=== PATIENT | female | born 1980 | race Hispanic/Latino ===

== ENCOUNTER 2018-07-14 13:55 | Emergency (ER) | payer OTHER ==
[~2018-07-14] VITALS: Ht 165.1 cm; Wt 108.9 kg
[~2018-07-14 13:55] MED LIST: AUGMENTIN 875-1 EACH PO; BACTRIM DS TAB1 EACH PO; BENTYL 10 MG CA10 MG PO; BENTYL10 M1 PO; BENTYL20 M1 PO; CLONAZEPAM0.5 M2 PO; CLONAZEPAM0.5 MG PO; CLONAZEPAM1 MG PO; COLACE100 MG PO; DICLOFENAC POTA50 M1 PO; DILAUDID2 M1 PO; DILAUDID2 MG PO; DONNATAL TABS1 TAB PO; DOXYCYCLINE100 MG PO; ESCITALOPRAM OX10 MG PO; ESCITALOPRAM10 MG PO; FLEXERIL10 MG PO; HYDROCODONE/ACE1 TA1 PO; IBUPROFEN600 M1 PO; IBUPROFEN800 M1 PO; IMODIUM A-D2 M2 PO; KETOROLAC TROME10 M1 PO; LAMICTAL 25MG25 MG PO; LAMICTAL150 MG PO; LAMOTRIGINE200 M2 PO; LATUDA120 M1 PO; LATUDA20 MG PO; LEVSIN-SL0.125 MG PO; LEXAPRO 20MG M20 MG PO; LEXAPRO20 M1 PO; LITHIUM CARBON300 M4 PO; LITHIUM CARBON600 M1 PO; MINASTRIN 24 FE1 KIT PO; MIRALAX17 GM PO; MIRENA1 EACH; MIRTAZAPINE15 M2 PO; MOBIC 15MG15 MG PO; OLANZAPINE10 M1 PO; OXYCODONE-ACET1 EACH PO; PERCOCET 325 MG1 TA2 PO; PERCOCET 5-3251 EACH PO; PHENERGAN25 M1 PO; PREVACID 30MG30 MG PO; PRILOSEC 20MG C20 MG PO; PYRIDIUM100 M1 PO; REGLAN10 M1 PO; SULINDAC150 M1 PO; TRAMADOL HCL50 MG PO; TRAMADOL50 MG PO; TRAZODO50 MG PO; TRAZODONE HCL100 M1 PO; TRAZODONE100 MG PO; TRAZODONE50 MG PO; VICODIN5-300 PO; VYVANSE60 M1 PO; ZOFRAN 4 MG TABL4 MG PO; ZOFRAN ODT4 M1 PO; ZOFRAN ODT4 M1 SL; ZOFRAN ODT4 MG SL; ZOFRAN4 M2 PO; ZYPREXA20 M1 PO
[2018-07-14 14:51] LABS: ABSOLUTE BASOPHIL COUNT 0 /CUMM (0.0-0.2); ABSOLUTE EOSINOPHIL COUNT 0 /CUMM (0.0-0.7); ABSOLUTE GRANULOCYTE CT 8.4 /CUMM (1.4-6.5); ABSOLUTE LYMPH COUNT 2.5 /CUMM (1.2-3.4); ABSOLUTE MONOCYTE COUNT 0.4 /CUMM (0.10-0.60); BASOPHIL % 0.3 % (0.0-2.0); EOSINOPHIL % 0 % (0-5); GRANULOCYTE % 73.9 % (42.2-75.2); HEMATOCRIT 41.4 % (37-47); MEAN CORPUSCULAR HGB 26.6 PG (27.0-31.0); MEAN CORPUSCULAR HGB CONC 33.7 G/DL (33.0-37.0); MEAN CORPUSCULAR VOLUME 79.2 FL (81.0-99.0); MEAN PLATELET VOLUME 6.4 FL (7.4-10.4); PLATELET COUNT 385 /CUMM (130-400); RED BLOOD CELL CT 5.22 /CUMM (4.20-5.40); WHITE BLOOD CELL COUNT 11.3 /CUMM (4.8-10.8)
[2018-07-14] MEDS ORDERED: OLANZAPINE5 M2 PO (17:00)
--- NOTE | 2018-07-14 19:08 | ULTRASOUND REPORT ---
EXAMINATION: RENAL ULTRASOUND PELVIC ULTRASOUND CLINICAL INFORMATION: Right flank pain. Right lower quadrant pain. History of a left-sided oophorectomy. LMP was on 06/03/2018. History of 2 sections. History of ovarian cysts. IUD in place. COMPARISON: Abdominal CT from 04/20/2018. TECHNIQUE: Evaluation of the kidneys, bladder, and pelvic organs structures. FINDINGS: Renal and bladder: The right kidney measures 11.2 x 4.8 x 6.1 cm. The left kidney measures 11.3 x 6.7 x 4.8 cm. Cortical echogenicity is homogeneous bilaterally. There is no hydronephrosis or nephrolithiasis. The prevoid bladder volume measures 167 mL with only a 10 mL postvoid residual. Bilateral ureteral jets are visible. The liver is homogeneously increased in echogenicity, indicative for fatty infiltration. Pelvis: An IUD is in place and in appropriate position. The uterus measures 8.4 x 3.8 x 4.1 cm and is anteverted. Cervical length measures 3.8 cm. Endometrial thickness is normal, measuring 0.2 cm. There is a 2.4 x 3 x 2.4 cm fibroid near the uterine fundus on the left side. The left ovary has been removed. The right ovary is not seen. IMPRESSION: Normal renal ultrasound. No significant post void residual in the bladder. Hepatic steatosis. Nonvisualization of the right ovary, status post left-sided oophorectomy. 2.4 x 3 cm uterine fibroid. IUD appears to be in appropriate position.
[2018-07-14] MEDS ORDERED: DOXYCYCLINE HY100 M4 PO (20:46)
[2018-07-14] MEDS ORDERED: FLAGYL500 MG PO (20:46)
--- NOTE | 2018-07-14 21:26 | ED GENERAL ADULT ---
History of Present Illness General Chief Complaint: Female Urogenital Problems Stated Complaint: FLANK, BACK, GROIN PAIN S/P URINARY TRACT INFE? Source: patient Exam Limitations: no limitations Vital Signs & Intake/Output Vital Signs & Intake/Output Vital Signs Date Time Temp Pulse Resp B/P B/P Pulse O2 O2 Flow FiO2 Mean Ox Delivery Rate 07/14 2237 97.4 89 18 117/74 96 07/14 2033 90 20 121/77 96 Room Air 07/14 1732 90 20 130/78 97 Room Air 07/14 1615 Room Air 07/14 1429 98.5 109 20 130/87 97 Room Air ED Intake and Output 07/15 0000 07/14 1200 Intake Total 1000 Output Total Balance 1000 Intake, IV 1000 Patient 240 lb Weight Weight Reported by Patient Measurement Method Allergies Coded Allergies: ciprofloxacin (Rash 04/18/16) diphenhydramine (From BENADRYL) (THROAT CLOSURE 07/14/18) ketorolac (From TORADOL) (THROAT CLOSURE 07/14/18) Reconcile Medications Clonazepam 0.5 MG TABLET 1-2 TAB PO BIDP PRN ANXIETY (Reported) Doxycycline Hyclate 100 MG TABLET 1 TAB PO BID vaginal infection Escitalopram Oxalate (Lexapro) 20 MG TABLET 1 TAB PO DAILY MENTAL HEALTH ( Reported) Levonorgestrel (Mirena) 1 EACH IUD CONTROL (Reported) Lisdexamfetamine Dimesylate (Vyvanse) 60 MG CAPSULE 1 CAP PO QAM ADD ( Reported) [place] Carbonate 600 MG CAPSULE 1 CAP PO BID MENTAL HEALTH (Reported) Metronidazole (Flagyl) 500 MG TABLET 1 TAB PO BID vaginal infection Olanzapine 5 MG TABLET 1 TAB PO QPM MENTAL HEALTH (Reported) Trazodone HCl 100 MG TABLET 1 TAB PO QPM PRN SLEEP (Reported) Triage Note: PT TO ED C/O CONTINUED LOWER ABD PAIN AND CONTINUED UTI S/S. PT STATES SHE WAS ADMITTED TO [facility] 2 WEEKS AGO FOR BLADDER AND KIDNEY INFECTION. STATES PAIN IS NO BETTER. Triage Nurses Notes Reviewed? yes : No Patient currently breastfeeds: No HPI: 38 yo F with a pmhx sig for ovarian cysts, lowr abdominal pain, bipolar presents to ED for abdominal pain for last 2 weeks with progression of pain today that did not respond to high dose NSAIDs. Patient was seen at [facility] and admitted for presumed pyelonephritis and was discharged with bactrim treatment. Patient since then has had persistent pain. Mild spotting as per her usual, no discharge. No n/v. +diarrhea x 2 weeks since onset of symptoms. (Matt Hackett MD) Past History Travel History Traveled to [place] past 21 day No Medical History Any Pertinent Medical History? see below for history Neurological: NONE EENT: NONE Cardiovascular: NONE Respiratory: NONE Gastrointestinal: hiatal hernia Hepatic: NONE Renal: KIDNEY STONES Musculoskeletal: NONE Psychiatric: anxiety, bipolar disease, depression Endocrine: NONE Blood Disorders: NONE Cancer(s): NONE EYE CARE PROFESSIONAL/Reproductive: OVARIAN CYSTS History of MRSA: No History of VRE: No History of CDIFF: No Surgical History Surgical History: cholecystectomy, , left ovary removed Psychosocial History Who do you live with Patient and family Services at Home None What is your primary language Yi Tobacco Use: Quit >30 days ago ETOH Use: denies use Illicit Drug Use: denies illicit drug use Family History Family History, If Any: FATHER (Prostate Cancer.). FHx: cholecystectomy, Onset: Unknown. Grandmother (HTN, Heart disease, Stroke). Aunt (Thyroidectomy b/o Graves Disease). Uncle (Colon Cancer, Pancreatic Cancer). Hx Contributory? No (Matt Hackett MD) Review of Systems Review of Systems Constitutional: Reports: chills. Denies: fever. Respiratory: Denies: no symptoms. GI: Reports: abdominal pain, diarrhea, nausea. Denies: bloody stool, vomiting. Genitourinary: Reports: dysuria, pain, urgency. Denies: discharge. Skin: Reports: rash (psoriasis). (Matt Hackett MD) Physical Exam Physical Exam General Appearance: no apparent distress, alert, awake Head: atraumatic Eyes: Bilateral: normal appearance. Ears, Nose, Throat: normal ENT inspection Neck: normal inspection Respiratory: normal breath sounds, chest non-tender Gastrointestinal: tenderness, rigth flank and rlq ttp without guarding or rebound Rectal: normal exam Comments: : white dc seen in vault, Os closed, no fbs, no friable tissue Core Measures ACS in differential dx? No CVA/TIA Diagnosis: No Sepsis Present: No Sepsis Focused Exam Completed? No (Matt Hackett MD) Progress Differential Diagnoses I considered the following diagnoses in my evaluation of the patient: [ appendicitis, diverticulitis, cholecysitis, pyelo, cystisi, PID, preg, gastroenteritis] Plan of Care: Orders Procedure Date/time Status CHLAMYDIA-GC DNA PROBE 07/14 2040 Active GENITAL CULTURE 07/14 2000 Active CULTURE,URINE 07/14 1759 Active LACTIC ACID 07/14 1732 Complete URINE 07/14 143 Complete URINALYSIS 07/14 1432 Complete LACTIC ACID 07/14 1432 Complete COMPREHENSIVE METABOLIC PANEL 07/14 1432 Complete CBC WITHOUT DIFFERENTIAL 07/14 1432 Complete Current Medications Sig/Jaswant Start time Last Medication Dose Stop Time Status Admin Ceftriaxone Sodium 1,000 MG ONCE ONE 07/14 2130 CAN (Rocephin) 07/14 2131 Ceftriaxone Sodium 250 MG ONCE ONE 07/14 2045 CAN (Rocephin) 07/14 2046 Laboratory Tests 07/14/181999: Ref Lab Test Result Pending 07/14/181730: Lactic Acid 2.0 07/14/18 144: Anion Gap 15, Estimated GFR > 60, BUN/Creatinine Ratio 16.7, Glucose 118 H, Lactic Acid 2.5 H, Calcium 10.8 H, Total Bilirubin 0.3, AST 47 H, ALT 66 H, Alkaline Phosphatase 104, Total Protein 8.7 H, Albumin 5.2 H, Globulin 3.5, Albumin/Globulin Ratio 1.5, CBC w Diff NO MAN DIFF REQ, RBC 5.22, MCV 79.2 L, MCH 26.6 L, MCHC 33.7, RDW 13.0, MPV 6.4 L, Gran % 73.9, Lymphocytes % 21.9, Monocytes % 3.9, Eosinophils % 0, Basophils % 0.3, Absolute Granulocytes 8.4 H, Absolute Lymphocytes 2.5, Absolute Monocytes 0.4, Absolute Eosinophils 0, Absolute Basophils 0 07/14/18 144: Urine Color YEL, Urine Clarity HAZY H, Urine pH 6.0, Ur Specific [place] 1.025, Urine Protein NEG, Urine Ketones NEG, Urine Nitrite NEG, Urine Bilirubin NEG, Urine Urobilinogen 0.2, Ur Leukocyte Esterase NEG, Ur Microscopic SEDIMENT EXAMINED, Urine RBC 1-3, Ur Epithelial Cells MANY H, Urine Bacteria FEW H, Urine Hemoglobin TRACE-LYSED, Urine Glucose NEG, Urine Test NEGATIVE Microbiology 07/14 2040 GENITAL: Trichomonas Preparation - CAN Cancelled: NOT SPECIMEN COLLECTED 07/14 2000 GENITAL: GC DNA Probe - RECD 07/14 2000 GENITAL: Chlamydia DNA Probe (YVONNE) - RECD 07/14 2000 GENITAL: Genital Culture - RECD 07/14 9569 URINE ROUT: Urine Culture - ORD Initial ED EKG: none Comments: Spoke with [facility] who stated patient had CT scan 3 days ago with normal appendix, possible fat stranding over bladder and fatty liver. No acute findings. No recent culture growth. Also looked at patient's Epic chart which showed multiple CT scans over last several years. Patient states pain and symntoms identical to ones that brought her to [facility]. Spoke about pros/cons of further CT scans and agrees that it would be of little value. Believe this to be chronic abd pain, possibly colitis (diarrhea, hx of ct scan showing colitis), unliekly PID given low risk sexual history and after speaking with Dr. 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 1 g ceftriaxone given ehre with education to continue bactrim. Azithromycin given for possible colitis. To fu with [facility] and Dr. Rudolph's office (whom is treating for UT). Told that patient may want to have endometriosis looked at once more. Returns precautions for worsening GIU/FIDEL sx, fevers, chills. (Matt Hackett MD) Departure Departure Disposition: HOME OR SELF CARE Condition: Stable Referrals: Patient Has No Primary Care Dr (PCP/Family) Departure Forms: Customer Survey General Discharge Information Prescriptions: Current Visit Scripts Doxycycline Hyclate 1 TAB PO BID 14 Days Metronidazole (Flagyl) 1 TAB PO BID 14 Days (Matt Hackett MD) Departure Clinical Impression Primary Impression: Abdominal pain PA/CAR DELIVERER Co-Sign Statement Statement: ED Attending supervision documentation- I saw and evaluated the patient. I have also reviewed all the pertinent lab results and diagnostic results. I agree with the findings and the plan of care as documented in the PA's/CAR DELIVERER's documentation. x I have reviewed the ED Record and agree with the PA's/CAR DELIVERER's documentation. [] Additions or exceptions (if any) to the PAs/CAR DELIVERER's note and plan are summarized below: [] (Anton CRUZ,Reji) Critical Care Note Critical Care Note Critical Care Time: non-applicable (Lew CRUZ,Matt)
[2018-07-14 22:37] VITALS: BP 117/74
== END 2018-07-14 22:39 ==
LOC: ERH 13:55
PROVIDERS: Physician Assistant Medical
DX: R10.30 Lower abdominal pain, unspecified (principal)
CPT/HCPCS: 87070; 76775; 81001; 81025; 87040; 87086; 87491; 87591; 96374; 96375; 96376; J0456; J0696; J2405

== ENCOUNTER 2018-07-20 10:17 | Emergency (ER) | payer OTHER ==
[~2018-07-20] VITALS: Ht 165.1 cm; Wt 108.9 kg
[~2018-07-20 10:17] MED LIST changes: +DOXYCYCLINE HY100 M4 PO; +FLAGYL500 MG PO; +OLANZAPINE5 M2 PO
--- NOTE | 2018-07-20 13:38 | ED GI/GU/ABDOMINAL COMPLAINT ---
History of Present Illness General Chief Complaint: Abdominal Pain/Flank Pain Stated Complaint: ABDOMINAL PAIN, BACK PAIN Source: patient Exam Limitations: no limitations Vital Signs & Intake/Output Vital Signs & Intake/Output Vital Signs Date Time Temp Pulse Resp B/P B/P Pulse O2 O2 Flow FiO2 Mean Ox Delivery Rate 07/20 1633 98.1 86 20 125/72 95 Room Air 07/20 1518 Room Air 07/20 1347 98.6 96 18 132/86 98 Room Air Room Air 07/20 1022 99.0 106 20 125/86 98 Room Air Allergies Coded Allergies: ciprofloxacin (Rash 04/18/16) diphenhydramine (From BENADRYL) (THROAT CLOSURE 07/14/18) ketorolac (From TORADOL) (THROAT CLOSURE 07/14/18) Reconcile Medications Clonazepam 0.5 MG TABLET 1 TAB PO DAILY ANXIETY (Reported) Clonazepam 1 MG TABLET 1 TAB PO QPM ANXIETY (Reported) Cyclobenzaprine HCl 10 MG TABLET 1 TAB PO TID PRN MUSCLE (Reported) Escitalopram Oxalate (Lexapro) 20 MG TABLET 1 TAB PO DAILY MENTAL HEALTH ( Reported) Levonorgestrel (Mirena) 1 EACH IUD CONTROL (Reported) Lisdexamfetamine Dimesylate (Vyvanse) 60 MG CAPSULE 1 CAP PO QAM ADD ( Reported) [place] Carbonate 600 MG CAPSULE 1 CAP PO BID MENTAL HEALTH (Reported) Nystatin 100,000 UNIT/ML ORAL.SUSP 5 ML PO 4 TIMES/DAY thrush Olanzapine 5 MG TABLET 1 TAB PO QPM MENTAL HEALTH (Reported) Tramadol HCl 50 MG TABLET 1-2 TAB PO BIDP PRN pain Trazodone HCl 100 MG TABLET 1 TAB PO QPM PRN SLEEP (Reported) Triage Note: C/O BILATERAL FLANK PAIN AND GROIN PAIN. SEEN HERE FOR SAME A FEW DAYS AGO. JUST LEFT UROLOGIST OFFICE AND THEY SAID NOTHING WRONG. PT STATES SHE HAD AN U/S WHEN HERE A FEW DAYS AGO. PT STATES CRAMPS AND PRESSURE WITH URINATION Triage Nurses Notes Reviewed? yes ? n Is pt currently ? No Onset: Abrupt Duration: week(s):, intermittent Timing: recent history Location: left flank, right flank Radiation: no radiation Activities at Onset: none HPI: 38-year-old female comes into the emergency room for further evaluation of back pain and abdominal pain. Patient reports that she had kidney stones recently. She's been in the hospital. She had recent kidney infection. She been on a couple courses of antibiotics. She reports persistent increased pain especially in her back. Comes in for further evaluation. Past History Travel History Traveled to [place] past 21 day No Medical History Any Pertinent Medical History? see below for history Neurological: NONE EENT: NONE Cardiovascular: NONE Respiratory: NONE Gastrointestinal: hiatal hernia Hepatic: NONE Renal: KIDNEY STONES Musculoskeletal: NONE Psychiatric: anxiety, bipolar disease, depression Endocrine: NONE Blood Disorders: NONE Cancer(s): NONE SOFTWARE DESIGN ANALYST/Reproductive: OVARIAN CYSTS History of MRSA: No History of VRE: No History of CDIFF: No Surgical History Surgical History: cholecystectomy, , left ovary removed Psychosocial History Who do you live with Patient and family Services at Home None What is your primary language Salvadorean Tobacco Use: Never used ETOH Use: occasional use Illicit Drug Use: denies illicit drug use Family History Family History, If Any: FATHER (Prostate Cancer.). FHx: cholecystectomy, Onset: Unknown. Grandmother (HTN, Heart disease, Stroke). Aunt (Thyroidectomy b/o Graves Disease). Uncle (Colon Cancer, Pancreatic Cancer). Hx Contributory? No Review of Systems Review of Systems Constitutional: Reports: no symptoms. EENTM: Reports: no symptoms. Respiratory: Reports: no symptoms. Cardiovascular: Reports: no symptoms. GI: Reports: see HPI. Genitourinary: Reports: see HPI. Musculoskeletal: Reports: no symptoms. Skin: Reports: no symptoms. Neurological/Psychological: Reports: no symptoms. Hematologic/Endocrine: Reports: no symptoms. Immunologic/Allergic: Reports: no symptoms. All Other Systems: Reviewed and Negative Physical Exam Physical Exam General Appearance: well developed/nourished, moderate distress Head: atraumatic Eyes: Bilateral: normal appearance. Ears, Nose, Throat, Mouth: moist mucous membrane Neck: normal inspection Respiratory: normal breath sounds, no respiratory distress Cardiovascular: regular rate/rhythm Gastrointestinal: soft Back: CVA tenderness (R), CVA tenderness (L) Extremities: normal range of motion Neurologic/Psych: awake, alert Skin: intact, normal color Core Measures ACS in differential dx? No Sepsis Present: No Sepsis Focused Exam Completed? No Progress Differential Diagnosis: cholecystitis, diverticulitis, kidney stone, ovarian cyst, UTI/pyelo Plan of Care: Orders Procedure Date/time Status COMPREHENSIVE METABOLIC PANEL 07/20 1330 Complete CBC WITHOUT DIFFERENTIAL 07/20 1330 Complete URINE 07/20 1219 Complete URINALYSIS 07/20 1219 Complete Laboratory Tests 07/20/18 1339: Anion Gap 14, Estimated GFR > 60, BUN/Creatinine Ratio 20.0, Glucose 110 H, Calcium 9.6, Total Bilirubin 0.4, AST 66 H, ALT 71 H, Alkaline Phosphatase 88, Total Protein 7.8, Albumin 4.7, Globulin 3.1, Albumin/Globulin Ratio 1.5, CBC w Diff NO MAN DIFF REQ, RBC 4.50, MCV 79.4 L, MCH 27.2, MCHC 34.3, RDW 12.8, MPV 7.0 L, Gran % 71.0, Lymphocytes % 24.7, Monocytes % 3.9, Eosinophils % 0.1, Basophils % 0.3, Absolute Granulocytes 7.6 H, Absolute Lymphocytes 2.7, Absolute Monocytes 0.5, Absolute Eosinophils 0, Absolute Basophils 0 07/20/18 1221: Urine Color YEL, Urine Clarity HAZY H, Urine pH 6.0, Ur Specific [place] 1.025, Urine Protein NEG, Urine Ketones NEG, Urine Nitrite NEG, Urine Bilirubin NEG, Urine Urobilinogen 0.2, Ur Leukocyte Esterase NEG, Ur Microscopic SEDIMENT EXAMINED, Urine RBC 50-75 H, Urine WBC 1-3 H, Ur Epithelial Cells MOD H, Urine Bacteria MOD H, Urine Hemoglobin MOD H, Urine Glucose NEG, Urine Test NEGATIVE Diagnostic Imaging: Viewed by Me: CT Scan. Discussed w/RAD: CT Scan. Radiology Impression: PATIENT: JOSEFINA GIBBS PRESENT AGE: 38 PATIENT ACCOUNT NO: [id number] : 81 LOCATION: [facility] ORDERING PHYSICIAN: Devin ZAPATA SERVICE DATE: 07/20/18-134 EXAM TYPE : CAT - CT ABD & PELVIS W/O IV CONTRAS EXAMINATION: CT ABDOMEN AND PELVIS WITHOUT CONTRAST CLINICAL INFORMATION: Flank pain. History of kidney stones. COMPARISON: Renal ultrasound 07/14/2018. CT scan abdomen pelvis 05/19/2018 TECHNIQUE: Multidetector volumetric imaging was performed from the superior aspect of the liver through the pubic symphysis. Sagittal and coronal reformatted images were obtained on the technologist's workstation. DLP: 1273.33 mGy-cm FINDINGS: LUNG BASES: The visualized lung bases are unremarkable. LIVER, GALLBLADDER, AND BILIARY TREE: There is marked low attenuation of liver parenchyma due to fatty change. There is no focal liver lesion. There is no intrahepatic bile duct dilatation. The liver is enlarged. The right lobe of the liver measures 24 cm superior inferior. Status post cholecystectomy. PANCREAS: Unremarkable. SPLEEN: Unremarkable. ADRENAL GLANDS: Unremarkable. KIDNEYS AND URETERS: The kidneys are normal in size, shape, and attenuation. No hydronephrosis, hydroureter, or calculi seen. No perinephric stranding. BLADDER: Unremarkable. GASTROINTESTINAL TRACT: There is no acute change of the bowel. No bowel obstruction. No bowel wall thickening or edema. The appendix is normal. The small bowel loops are unremarkable. ABDOMINAL WALL: No significant hernia is appreciated. LYMPH NODES: Normal. VASCULAR: Unremarkable. PELVIC VISCERA: There is an IUD in the endometrial cavity. The uterus is anteverted. There is no adnexal abnormality. There is no adnexal abnormality. There is no fluid in the cul-de-sac. OSSEOUS STRUCTURES: Unremarkable. IMPRESSION: 1. No acute abnormality. Normal kidneys, ureter and bladder. 2. Hepatomegaly with diffuse fatty change of liver. 3. Status post cholecystectomy. 4. IUD in the endometrial cavity of the uterus. DICTATED BY: Valentino Bardales MD DATE/TIME DICTATED:07/20/181500 ESTATE PLANNING COUNSELOR:DAVID DATE/TIME TRANSCRIBED:07/20/181500 CONFIDENTIAL, DO NOT COPY WITHOUT APPROPRIATE AUTHORIZATION. <Electronically signed in Other Vendor System> SIGNED BY: Valentino Bardales MD 07/20/18 151 Initial ED EKG: none Comments: 07/20/2018 6:05:38 PM Patient pain improved. Patient clinically looks well. In no apparent distress. Nontoxic-appearing. Departure Departure Disposition: HOME OR SELF CARE Condition: Stable Clinical Impression Primary Impression: Abdominal pain Referrals: Patient Has No Primary Care Dr (PCP/Family) Additional Instructions: Follow-up with your urologist. Follow-up with PCP. Return if any other concerns. Take tramadol for pain. Take the stat and oral suspension as prescribed. Please go over all results of today's visit with your primary care doctor. Contact your primary care doctor to let them know you were here in the emergency room. There may be nonspecific findings which may not be related to your visit today here in the emergency room but may require further evaluation and chronic monitoring by your primary care doctor. If you had a laceration today the chance of foreign body always remains. You should follow-up with your primary care doctor for recheck in 3-5 days for a wound check. If you had an x-ray done there is a chance that a fracture could have been missed on initial read and you should follow-up with your primary care doctor for repeat x-rays if symptoms persist. If your blood pressure was elevated here in the emergency room please have rechecked by [facility] primary care doctor within the next 48. If you were prescribed a narcotic here in the emergency room or any type of controlled substances you're not allowed to drive while taking this medication or operate any type of heavy machinery. Narcotics can make you feel lightheaded dizziness nausea and can cause constipation. You may need to seed cone picker a stool softener. Thank you for choosing [facility] emergency room. Please return to the emergency room immediately if you have any other concerns worsening of symptoms. Departure Forms: Customer Survey General Discharge Information Prescriptions: Current Visit Scripts Tramadol HCl 1-2 TAB PO BIDP PRN pain #15 TAB Nystatin 5 ML PO 4 TIMES/DAY #200 ML
[2018-07-20 13:57] LABS: ABSOLUTE BASOPHIL COUNT 0 /CUMM (0.0-0.2); ABSOLUTE EOSINOPHIL COUNT 0 /CUMM (0.0-0.7); ABSOLUTE LYMPH COUNT 2.7 /CUMM (1.2-3.4); BASOPHIL % 0.3 % (0.0-2.0); EOSINOPHIL % 0.1 % (0-5); MEAN CORPUSCULAR VOLUME 79.4 FL (81.0-99.0)
[2018-07-20 14:04] LABS: ABSOLUTE GRANULOCYTE CT 7.6 /CUMM (1.4-6.5); ABSOLUTE MONOCYTE COUNT 0.5 /CUMM (0.10-0.60); MEAN CORPUSCULAR HGB 27.2 PG (27.0-31.0); MEAN CORPUSCULAR HGB CONC 34.3 G/DL (33.0-37.0); PLATELET COUNT 360 /CUMM (130-400); RBC DISTRIBUTION WIDTH 12.8 % (11.5-14.5); WHITE BLOOD CELL COUNT 10.8 /CUMM (4.8-10.8)
[2018-07-20 14:07] LABS: HEMATOCRIT 35.8 % (37-47)
[2018-07-20] MEDS ORDERED: CYCLOBENZAPRINE10 M1 PO (14:48)
[2018-07-20] MEDS ORDERED: CLONAZEPAM1 M2 PO (14:49)
--- NOTE | 2018-07-20 15:13 | CT SCAN REPORT ---
EXAMINATION: CT ABDOMEN AND PELVIS WITHOUT CONTRAST CLINICAL INFORMATION: Flank pain. History of kidney stones. COMPARISON: Renal ultrasound 07/14/2018. CT scan abdomen pelvis 05/19/2018 TECHNIQUE: Multidetector volumetric imaging was performed from the superior aspect of the liver through the pubic symphysis. Sagittal and coronal reformatted images were obtained on the technologist's workstation. DLP: 1273.33 mGy-cm FINDINGS: LUNG BASES: The visualized lung bases are unremarkable. LIVER, GALLBLADDER, AND BILIARY TREE: There is marked low attenuation of liver parenchyma due to fatty change. There is no focal liver lesion. There is no intrahepatic bile duct dilatation. The liver is enlarged. The right lobe of the liver measures 24 cm superior inferior. Status post cholecystectomy. PANCREAS: Unremarkable. SPLEEN: Unremarkable. ADRENAL GLANDS: Unremarkable. KIDNEYS AND URETERS: The kidneys are normal in size, shape, and attenuation. No hydronephrosis, hydroureter, or calculi seen. No perinephric stranding. BLADDER: Unremarkable. GASTROINTESTINAL TRACT: There is no acute change of the bowel. No bowel obstruction. No bowel wall thickening or edema. The appendix is normal. The small bowel loops are unremarkable. ABDOMINAL WALL: No significant hernia is appreciated. LYMPH NODES: Normal. VASCULAR: Unremarkable. PELVIC VISCERA: There is an IUD in the endometrial cavity. The uterus is anteverted. There is no adnexal abnormality. There is no adnexal abnormality. There is no fluid in the cul-de-sac. OSSEOUS STRUCTURES: Unremarkable. IMPRESSION: 1. No acute abnormality. Normal kidneys, ureter and bladder. 2. Hepatomegaly with diffuse fatty change of liver. 3. Status post cholecystectomy. 4. IUD in the endometrial cavity of the uterus.
[2018-07-20] MEDS ORDERED: TRAMADOL HCL50 M1 PO (15:56)
[2018-07-20] MEDS ORDERED: NYSTATIN100000 UNI PO (15:56)
[2018-07-20 16:33] VITALS: BP 125/72
== END 2018-07-20 16:34 ==
LOC: ERH 10:17
PROVIDERS: Physician Assistant Medical
DX: R10.9 Unspecified abdominal pain (principal); M54.9 Dorsalgia, unspecified; K44.9 Diaphragmatic hernia without obstruction or gangrene
CPT/HCPCS: 74176; 81001; 81025; 96374; 96375; 96376; J2405

== ENCOUNTER 2018-07-24 10:22 | Emergency (ER) | payer OTHER ==
[~2018-07-24] VITALS: Ht 165.1 cm; Wt 108.9 kg
[~2018-07-24 10:22] MED LIST changes: +CLONAZEPAM1 M2 PO; +CYCLOBENZAPRINE10 M1 PO; +NYSTATIN100000 UNI PO; +TRAMADOL HCL50 M1 PO
[2018-07-24 11:00] LABS: ABSOLUTE BASOPHIL COUNT 0 /CUMM (0.0-0.2); ABSOLUTE EOSINOPHIL COUNT 0 /CUMM (0.0-0.7); ABSOLUTE GRANULOCYTE CT 5.8 /CUMM (1.4-6.5); ABSOLUTE LYMPH COUNT 1.9 /CUMM (1.2-3.4); ABSOLUTE MONOCYTE COUNT 0.4 /CUMM (0.10-0.60); BASOPHIL % 0.3 % (0.0-2.0); EOSINOPHIL % 0 % (0-5); GRANULOCYTE % 71.4 % (42.2-75.2); HEMATOCRIT 37.3 % (37-47); MEAN CORPUSCULAR HGB 26.9 PG (27.0-31.0); MEAN CORPUSCULAR HGB CONC 33.7 G/DL (33.0-37.0); MEAN CORPUSCULAR VOLUME 79.8 FL (81.0-99.0); MEAN PLATELET VOLUME 6.5 FL (7.4-10.4); PLATELET COUNT 345 /CUMM (130-400); RBC DISTRIBUTION WIDTH 13.1 % (11.5-14.5); RED BLOOD CELL CT 4.67 /CUMM (4.20-5.40); WHITE BLOOD CELL COUNT 8.1 /CUMM (4.8-10.8)
--- NOTE | 2018-07-24 11:25 | ED GENERAL ADULT ---
History of Present Illness General Chief Complaint: Abdominal Pain/Flank Pain Stated Complaint: SEVERE BILATERAL FLANK PAIN Source: patient, old records Exam Limitations: no limitations Vital Signs & Intake/Output Vital Signs & Intake/Output Vital Signs Date Time Temp Pulse Resp B/P B/P Pulse O2 O2 Flow FiO2 Mean Ox Delivery Rate 07/24 1345 98.1 86 18 116/70 97 Room Air 07/24 1033 98.1 99 24 120/84 99 Room Air Allergies Coded Allergies: ciprofloxacin (Rash 04/18/16) diphenhydramine (From BENADRYL) (THROAT CLOSURE 07/14/18) ketorolac (From TORADOL) (THROAT CLOSURE 07/14/18) Triage Note: PT PRESENTS TO THE ER C/O ABD PAIN RADIATING TO HER LOWER BACK.. ONSET LAST WEEK, PAIN WAS ON RIGHT SIDE AND PT WAS VOIDING BLOOD.. PT STATES THE PAIN IS ON BOTH SIDES NOW. PT STATES THAT SHE IS HAVING DIFFICULTY VOIDING AND HAS THE URGE CONSTANTLY TO VOID Triage Nurses Notes Reviewed? yes : No Patient currently breastfeeds: No HPI: This is a 38-year-old female with history of bipolar psychosis, cholelithiasis status post cholecystectomy, nephrolithiasis status post recent negative CAT scan for any ongoing nephrolithiasis, pyelonephritis, polycystic ovaries status post resection of left ovary, prior deliveries, presented to the emergency department with bilateral flank pain which is been ongoing and worsening for the past 3 days. Patient also reports urgency, dysuria, frequency. She denies any objective fever, chills, vomiting, constipation. She endorses some loose stool with nausea. Denies any cardiopulmonary symptoms such as chest pain, shortness of breath, chest tightness, cough, diaphoresis. Upon arrival, she is uncomfortable appearing. At home, she had been taking ibuprofen with moderate relief. She had been prescribed Cipro benzopyrene and ibuprofen for symptom control with some relief. She denies any vaginal bleeding or discharge. Denies dyspareunia. (Mitesh Andre MD) Reconcile Medications Clonazepam 0.5 MG TABLET 1 TAB PO DAILY ANXIETY (Reported) Clonazepam 1 MG TABLET 1 TAB PO QPM ANXIETY (Reported) Cyclobenzaprine HCl 10 MG TABLET 1 TAB PO TID PRN MUSCLE (Reported) Escitalopram Oxalate (Lexapro) 20 MG TABLET 1 TAB PO DAILY MENTAL HEALTH ( Reported) Levonorgestrel (Mirena) 1 EACH IUD CONTROL (Reported) Lisdexamfetamine Dimesylate (Vyvanse) 60 MG CAPSULE 1 CAP PO QAM ADD ( Reported) [place] Carbonate 600 MG CAPSULE 1 CAP PO BID MENTAL HEALTH (Reported) Nystatin 100,000 UNIT/ML ORAL.SUSP 5 ML PO 4 TIMES/DAY thrush Olanzapine 5 MG TABLET 1 TAB PO QPM MENTAL HEALTH (Reported) Oxycodone HCl/Acetaminophen (Percocet 5-325 MG Tablet) 5 MG-325 MG TABLET 1 TAB PO BID back pain Tramadol HCl 50 MG TABLET 1-2 TAB PO BIDP PRN pain Trazodone HCl 100 MG TABLET 1 TAB PO QPM PRN SLEEP (Reported) (Jacqueline CRUZ,Francisco J Moralez) Past History Travel History Traveled to [place] past 21 day No Medical History Any Pertinent Medical History? see below for history Neurological: NONE EENT: NONE Cardiovascular: NONE Respiratory: NONE Gastrointestinal: hiatal hernia Hepatic: NONE Renal: KIDNEY STONES Musculoskeletal: NONE Psychiatric: anxiety, bipolar disease, depression Endocrine: NONE Blood Disorders: NONE Cancer(s): NONE MARKETING INFORMATION MANAGER/Reproductive: OVARIAN CYSTS History of MRSA: No History of VRE: No History of CDIFF: No Surgical History Surgical History: cholecystectomy, , left ovary removed Psychosocial History Who do you live with Patient and family Services at Home None What is your primary language Yakut Tobacco Use: Never used Family History Family History, If Any: FATHER (Prostate Cancer.). FHx: cholecystectomy, Onset: Unknown. Grandmother (HTN, Heart disease, Stroke). Aunt (Thyroidectomy b/o Graves Disease). Uncle (Colon Cancer, Pancreatic Cancer). Hx Contributory? No (Mitesh Andre MD) Review of Systems Review of Systems Constitutional: Reports: no symptoms. EENTM: Reports: no symptoms. Respiratory: Reports: no symptoms. Cardiovascular: Reports: no symptoms. GI: Reports: see HPI. Genitourinary: Reports: see HPI. Musculoskeletal: Reports: see HPI. Skin: Reports: no symptoms. Neurological/Psychological: Reports: no symptoms. Hematologic/Endocrine: Reports: no symptoms. Immunologic/Allergic: Reports: no symptoms. (Mitesh Andre MD) Physical Exam Physical Exam General Appearance: well developed/nourished, no apparent distress, obese Head: atraumatic, normal appearance Eyes: Bilateral: normal appearance. Ears, Nose, Throat: normal pharynx, normal ENT inspection, hearing grossly normal Neck: normal inspection, supple, full range of motion Respiratory: normal breath sounds, no respiratory distress, lungs clear Cardiovascular: regular rate/rhythm, normal peripheral pulses Gastrointestinal: soft, non-tender Rectal: deferred Back: CVA tenderness (R), CVA tenderness (L) Extremities: normal inspection, normal capillary refill, normal range of motion, no edema Neurologic/Psych: no motor/sensory deficits, awake, alert, oriented x 3, normal gait, normal mood/affect Skin: intact, normal color, warm/dry Core Measures ACS in differential dx? No CVA/TIA Diagnosis: No Sepsis Present: No Sepsis Focused Exam Completed? No (Thai CRUZ,Mitesh) Progress Differential Diagnoses I considered the following diagnoses in my evaluation of the patient: Pyelonephritis, other urinary tract infection, doubt nephrolithiasis given recent negative CAT scan. Lower suspicion also for acute appendicitis, ectopic , obstructive process, gastroenteritis. Plan of Care: Orders Procedure Date/time Status Add-on Test (ER Only) 07/24 1124 Active URINE 07/24 1031 Complete CULTURE,URINE 07/24 1030 Active URINALYSIS 07/24 1030 Complete LIPASE 07/24 1030 Complete COMPREHENSIVE METABOLIC PANEL 07/24 1030 Complete CBC WITHOUT DIFFERENTIAL 07/24 1030 Complete Laboratory Tests 07/24/18 1115: Urine Test NEGATIVE 07/24/18 1115: Urine Color YEL, Urine Clarity HAZY H, Urine pH 6.0, Ur Specific [place] >= 1.030, Urine Protein NEG, Urine Ketones NEG, Urine Nitrite NEG, Urine Bilirubin NEG, Urine Urobilinogen 0.2, Ur Leukocyte Esterase TRACE H, Ur Microscopic SEDIMENT EXAMINED, Urine RBC RARE, Urine WBC RARE, Ur Epithelial Cells MOD H, Urine Bacteria FEW H, Urine Hemoglobin NEG, Urine Glucose NEG 07/24/18 1045: Anion Gap 13, Estimated GFR > 60, BUN/Creatinine Ratio 22.5, Glucose 172 H, Calcium 9.1, Total Bilirubin 0.2, AST 45 H, ALT 69 H, Alkaline Phosphatase 94, Total Protein 7.3, Albumin 4.4, Globulin 2.9, Albumin/Globulin Ratio 1.5, Lipase 47, CBC w Diff NO MAN DIFF REQ, RBC 4.67, MCV 79.8 L, MCH 26.9 L, MCHC 33.7, RDW 13.1, MPV 6.5 L, Gran % 71.4, Lymphocytes % 23.5, Monocytes % 4.8, Eosinophils % 0, Basophils % 0.3, Absolute Granulocytes 5.8, Absolute Lymphocytes 1.9, Absolute Monocytes 0.4, Absolute Eosinophils 0, Absolute Basophils 0 Microbiology 07/24 1030 URINE ROUT: Urine Culture - RECD Plan for basic labs, urinalysis, urine , pain control, p.o. challenge, reassessment. Labs are unremarkable. Urine negative. Urinalysis not convincing for acute urinary tract infection. Given no fever, chills, other symptoms of UTI, will hold off on antibiotics until culture results. Patient discharged home with short course of pain control and instructions to follow-up with primary doctor. Cross-sectional imaging at this time would be likely unhelpful given recent cross-sectional imaging and benign physical exam with normal labs. Risks and benefits are discussed with patient and she expresses understanding and agrees with plan. Initial ED EKG: none (Mitesh Andre MD) Departure Departure Time of Disposition: 2 Disposition: HOME OR SELF CARE Condition: Stable Clinical Impression Primary Impression: Back pain Referrals: Garima Ruvalcaba MD (PCP/Family) Additional Instructions: Thank you for coming to [facility] today. Your tests today did not reveal the cause of your pain. We did send a urine culture which should reveal any occult infection. We will call you if this is positive. Please take medication as prescribed for pain. Please follow-up with your primary doctor as we discussed. Please return to the emergency department if you develop any new or worsening symptoms. Departure Forms: Customer Survey General Discharge Information Prescriptions: Current Visit Scripts Oxycodone HCl/Acetaminophen (Percocet 5-325 MG Tablet) 1 TAB PO BID #6 TAB (Mitesh Andre MD) Resident Co-Sign Statement Statement: ED Attending supervision documentation- [] I saw and evaluated the patient. I have also reviewed all the pertinent lab results and diagnostic results. I agree with the findings and the plan of care as documented in the Resident's documentation. [X] I have reviewed the ED Record and agree with the Resident's documentation. [] Additions or exceptions (if any) to the Resident's note and plan are summarized below: [] (Jacqueline CRUZ,Yang.) Critical Care Note Critical Care Note Critical Care Time: non-applicable (Thai CRUZ,Mitesh)
[2018-07-24] MEDS ORDERED: PERCOCET 5-3251 EACH PO (13:23)
[2018-07-24 13:45] VITALS: BP 116/70
== END 2018-07-24 14:12 ==
LOC: ERH 10:22
PROVIDERS: Physician Assistant Medical
DX: M54.5 Low back pain (principal); K44.9 Diaphragmatic hernia without obstruction or gangrene; F31.9 Bipolar disorder, unspecified; F41.9 Anxiety disorder, unspecified; F32.9 Major depressive disorder, single episode, unspecified; E28.2 Polycystic ovarian syndrome
CPT/HCPCS: 81001; 81025; 87086; J3101